=== PATIENT | female | born 1965 | race Caucasian/White ===

== ENCOUNTER → 2016-08-16 | Outpatient (CLI) | payer BC, OTHER ==
[~2016-08-16] MED LIST: CELEXA20 MG PO; KRILL OIL 3001 EACH PO
== END | disposition home or self-care (01) ==
LOC: CECH 12:34
DX: R53.82 Chronic fatigue, unspecified (principal); I34.1 Nonrheumatic mitral (valve) prolapse; I36.1 Nonrheumatic tricuspid (valve) insufficiency
CPT/HCPCS: 93306